=== PATIENT | female | born 2000 | race Caucasian/White ===

== ENCOUNTER 2021-09-19 23:46 | Observation (INO) | payer OTHER, SELFPAY ==
[2021-09-20 00:06] VITALS: TEMP 36.8
[2021-09-20 00:30] VITALS: BP 132/86; PULSE 87
[2021-09-20 00:34] VITALS: BMI 29.3
--- NOTE | 2021-09-20 00:36 | OBADM ---
This patient, Monalisa Chavira, admitted to the OB room Labor/Delivery/Recovery 105 for observation. Patient/family oriented to hospital policies and general routines including ID bracelet, bed and alarms, visiting hours, pain management, procedures, bathroom and other care routines, personal items, smoking policy, room service/diet, and visiting hours. Patient/Family are encouraged to report perceived risks to care and to ask questions if they do not understand what they are told or what they should do.
[2021-09-20 01:00] VITALS: BP 127/73; PULSE 84
[2021-09-20 02:21] VITALS: TEMP 36.8
--- NOTE | 2021-09-23 08:02 | PM.OBTRLD ---
OB - Triage/Final Diagnosis Visit Information Comments/Additional reasons for admission: I have assessed the risk for this patient, Monalisa Ace Chavira, and determined that she would benefit from observation care. Final Diagnosis (1) False labor: Code(s): O47.9 - False labor, unspecified Status: Acute
== END 2021-09-20 04:15 | disposition home or self-care (01) ==
PROVIDERS: Admitting Provider Obstetrics & Gynecology; Visit Provider Obstetrics & Gynecology
DX: O47.9 False labor, unspecified (principal); Z3A.00 Weeks of gestation of pregnancy not specified
CPT/HCPCS: G0378; G0379